=== PATIENT | female | born 2000 | race Caucasian/White ===

== ENCOUNTER 2024-11-23 22:47 | Emergency (ER) | payer OTHER, SELFPAY ==
[2024-11-23 22:50] VITALS: BP 144/76
[2024-11-23 23:03] LABS: % Basophils 0.7 % (0-2); % Eosinophils 1.6 % (0-6); % Immature Granulocytes 0.7 % (0-0.5); % Lymphocytes 24.8 % (20.5-51.1); % Monocytes 12.4 % (1.7-9.3); % Neutrophils 59.8 % (42.2-75.2); Absolute Eosinophils 0.1 10^3/uL (0-0.7); Absolute Lymphocytes 1.4 10^3/uL (1.2-3.4); Absolute Monocytes 0.7 10^3/uL (0.1-0.6); Absolute Neutrophils 3.3 10^3/uL (1.4-6.5); Hemoglobin 13.2 g/dL (12.0-16.0); Mean Corp Hgb Conc. 35.7 g/dL (33.0-37.0); Mean Corpuscular Volume 95.4 fL (81.0-99.0); Mean Platelet Volume 9.7 fL (7.4-10.4); Nucleated Red Blood Cells % 0 %; Platelet Count 180 10^3/uL (130-400); Red Blood Cell Count 3.88 10^6/uL (4.20-5.40); Red Cell Dist. Width 12.3 % (11.5-14.5); White Blood Cell Count 5.6 10^3/uL (4.8-10.8)
[2024-11-23 23:23] LABS: HCG, Serum Qualitative Screen Negative
[2024-11-23 23:27] LABS: ALT (SGPT) 75 U/L (0-35); AST (SGOT) 76 U/L (14-36); Albumin 4.6 g/dl (3.5-5.0); Alkaline Phosphatase 70 U/L (38-126); Blood Urea Nitrogen 8 mg/dl (7-17); Calcium 9.9 mg/dl (8.4-10.2); Carbon Dioxide 26 mmol/L (22-30); Chloride 103 mmol/L (98-107); Glucose 162 mg/dl (70-99); Lipase 83 U/L (23-300); Potassium 4.1 mmol/L (3.5-5.1); Sodium 135 mmol/L (135-145); Total Protein 7.2 g/dl (6.3-8.2); eGFR > 60.00
[2024-11-24 01:02] VITALS: BP 130/75
[2024-11-24 01:03] VITALS: BMI 29.5
[2024-11-24 02:00] VITALS: BP 111/79
[2024-11-24 03:29] VITALS: BP 111/77
[2024-11-24 03:43] LABS: Urine Albumin Negative (Neg - Trace); Urine Bilirubin Negative (Negative); Urine Character Clear (Clear); Urine Color Yellow; Urine Glucose Negative (Negative); Urine Ketone Negative (Negative); Urine Leukocyte Negative (Negative); Urine Nitrite Negative (Negative); Urine Occult Blood Negative (Negative); Urine Specific Gravity 1.005 (<1.030); Urine Urobilinogen Negative (Neg - 1+)
[2024-11-24 04:00] VITALS: BP 113/67
--- NOTE | 2024-11-24 07:11 | ED.GENMED ---
History of Present Illness
General
Chief Complaint: Abdominal Pain
Source: patient and family
Exam Limitations: none
Time Seen by Provider: 11/24/24 03:08
Nursing documentation reviewed up to this point in time: agreed with
History of Present Illness
History of Present Illness:
24-year-old female with no reported chronic medical issues presents to the ER for evaluation of abdominal pain. Patient reports symptoms have been ongoing for a few months�she reports that she has had a vague right upper quadrant abdominal pain.
This evening she noticed that she had an acute worse episode that lasted for a few hours�symptoms seem to have improved by ER arrival but not completely resolved. She describes a sharp pain this evening in the right upper quadrant which was
nonradiating. No clear triggering factors�she said she was resting in bed at the time of onset. She denies any nausea or vomiting. She has had some chronic occasional diarrhea. She denies any dysuria, hematuria, change in urinary
frequency�treatment mentioned enuresis but denies to me. Denies any vaginal bleeding or discharge. She has not had a fever or chills. She denies similar symptoms in the past. She denies any prior abdominal surgeries. She does note that she has
a history of heavy alcohol use while at college but fortunately was able to stop and has not been drinking alcohol for the past few months.
Past History
Past History
ED Past Medical History: None
ED Past Surgical History: None
Patient has exhibited threatening behavior?: No
Review of Systems
Review of Systems
All Other Systems: ROS reviewed and negative except as documented in HPI and ROS
Constitutional: Denies fever or chills
Respiratory: Denies trouble breathing
Cardiac: Denies chest pain
ABD/GI: Reports abdominal pain and diarrhea; Denies nausea or vomiting
: Denies dysuria, frequency or flank pain
Musculoskeletal: Denies neck pain or back pain
Neurological: Denies dizzy or headache
Phy Exam
Physical Exam
Physical Exam:
General: Awake, alert, oriented x3; no acute distress
Head: Normocephalic, atraumatic
Eyes: Conjunctiva normal, sclera anicteric
Throat: Airway intact, handling secretions
Neck: Trachea midline, supple without meningismus
Lungs: Clear to auscultation bilaterally, no wheezing, rales, rhonchi
Heart: Regular rate and rhythm, no murmurs, gallops, or rubs
Abd: Soft, non distended, mildly tender right upper quadrant with no peritoneal signs, no masses
Back: No CVA tenderness
Neuro: No gross deficits
Skin: no rash in area of concern
Extremities: No edema in extremities, equal pulses in all extremities
Scores
Heart Failure Risk
Heart Failure Risk Score: Not Applicable
Heart Score for Chest Pain Patients
STEMI patient?: Not applicable
Withdrawal Assessment of Alcohol
Withdrawal Assessment Completed?: Not applicable
Course
Orders/Labs/Results
Orders:
Orders
11/23/24 22:52
IV Insert/Care/Rem.- Treatment PRN
Test Result ONCE
11/23/24 22:54
Complete Blood Count/With Diff Urgent
Comprehensive Metabolic Panel Urgent
HCG, Serum Qualitative Screen Urgent
Comment: Notify provider if positive test present
Lipase Urgent
11/24/24 03:22
US Abdomen Complete/Upper Urgent
Comment:
Reason For Exam: RUQ pain
11/24/24 03:32
Urinalysis Reflex To Culture Urgent
Date Specimen was Collected: 11/24/24
Time Specimen was Collected: 03:31
Abnormal Lab Results
11/23/24
22:54
RBC 3.88 L 10^6/uL
(4.20-5.40)
MCH 34.0 H pg
(27.0-31.0)
Absolute Monos (auto) 0.7 H 10^3/uL
(0.1-0.6)
Immature Gran % 0.7 H %
(0-0.5)
Monocytes % 12.4 H %
(1.7-9.3)
Glucose 162 H mg/dl
(70-99)
AST 76 H U/L
(14-36)
ALT 75 H U/L
(0-35)
11/23/24 22:54
11/23/24 22:54
Vital Signs
Initial and Last Documented VS:
Initial Vital Signs
Temp Pulse Resp BP Pulse Ox
36.7 C 124 18 144/76 98
11/23/24 22:50 11/23/24 22:50 11/23/24 22:50 11/23/24 22:50 11/23/24 22:50
Last Documented Vital Signs
Temp Pulse Resp BP Pulse Ox
36.7 C 124 18 113/67 98
11/23/24 22:50 11/23/24 22:50 11/23/24 22:50 11/24/24 04:00 11/24/24 05:00
MDM/Problems Addressed
Differential Diagnosis Includes:
Cholelithiasis, cholecystitis, pancreatitis, gastritis, PUD, nephrolithiasis
MDM/Problems Addressed:
24-year-old female presents for evaluation of acute on chronic abdominal pain in the right upper quadrant. Has had chronic symptoms for months but had acutely worse episode this evening that seems to improve. Vitals and exam as above. Will check
labs including a CBC and a CMP, hCG, lipase. Check urinalysis. Will check upper abdominal ultrasound. Will monitor and reassess after the above.
Labs reviewed: CBC unremarkable, CMP shows marginally elevated transaminases but normal T. bili. Lipase normal. hCG negative. Urinalysis bland. Upper abdominal ultrasound shows fatty liver disease which likely accounts for transaminitis but no
cholelithiasis no other acute pathology. Suspect likely gastritis/PUD. Will start on PPI. Stable for discharge with outpatient follow-up. Patient feels very comfortable with this plan. Spoke about return precautions and follow-up plan, all
questions answered.
*Radiology
Radiology exam reviewed: radiology read reviewed
*Pulse Oximetry
SaO2: 98
Oxygen Mode of Delivery: Room air
Patient hypoxic: no (98%)
*Critical Care Note
Total Time (30-74mins, 75-104mins- exclusive of procedures): Not Applicable
Data Reviewed
Source: patient, records and family
ED Attending Note
-
Portions of this chart may have been created with voice recognition software.� Occasional wrong word or��sound alike� substitutions may have occurred due to the inherent limitations of voice recognition software.
Discharge Plan
Departure
Patient Disposition: Home (Routine Discharge)
Date of Disposition: 11/24/24
Time of Disposition: 04:53
Patient with high blood pressure during this ER visit?: Yes
Discharge Problem:
Abdominal pain
Instructions: Abdominal Pain
Prescriptions:
New
pantoprazole 40 mg tablet,delayed release (DR/EC)
40 mg PO DAILY Qty: 30 0RF
Referrals:
Rand Mortensen MD [Family Provider, [facility]] - Follow up in 1 week
Activity Restrictions/Additional Instructions:
Thank you for visiting the Emergency Department at [facility].
1. Please schedule a follow up appointment as directed. Call first thing tomorrow morning to make an appointment.
2. If indicated, please take your medications as instructed and indicated on discharge paperwork.
3. If any of your symptoms do not improve, or persist, or become more severe within 6-12 hours, please return to the emergency department for further care.
4. Please return to the emergency department if you develop a headache, neck pain/stiffness, fever greater than 100.4F, chest pain, shortness of breath, persistent nausea, vomiting, slurred speech, difficulty walking, numbness/tingling, weakness,
signs of infection or any other symptoms that are worrisome to you.
Please call [phone] if you have any questions.
Interventions
Interventions:
*Risk Screen - Suicide Last Done: 11/23/24 22:50
*General Assessment Last Done: 11/24/24 01:03
*Neglect/Abuse Screening Last Done: 11/23/24 22:50
*ED- Fall Risk Assessment Last Done: 11/24/24 01:03
*ED COVID-19 Vaccine History Last Done: 11/24/24 01:03
*Nursing Disposition Last Done: 11/24/24 05:10
PM-Xofbug-Pietnrwazx Assessment Last Done: 11/24/24 01:03
Discharge Date and Time
Discharge Date/Time: 11/24/24 05:12
Print Language: [id number]
== END 2024-11-24 05:12 | disposition home or self-care (01) ==
LOC: EMR 22:47
PROVIDERS: EMERGENCY PHYSICIAN Emergency Medicine; FAMILY PHYSICIAN Family Medicine
DX: R10.11 Right upper quadrant pain (principal); G89.29 Other chronic pain; R74.01 Elevation of levels of liver transaminase levels
CPT/HCPCS: 99283; 76700; 80053; 81003; 83690; 84703; 85025